=== PATIENT | female | born 1980 | race Caucasian/White ===

== ENCOUNTER 2017-05-21 11:03 | Day surgery (SDC) | payer OTHER ==
[~2017-05-21] VITALS: Ht 157.5 cm; Wt 58.1 kg
--- NOTE | 2017-05-21 12:22 | Operative Note ---
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 She has had some moderate bloating and early satiety. She reports less belching or gassiness. She does have rare nausea. The patient reports no heartburn or reflux. She was having loose bowel movements with bright red rectal bleeding. She was having obstipation/incomplete evacuation. She was treated for SIBO with Xifaxan and then began combined MiraLAX plus Metamucil fiber bowel regimen. This has improved. She reports no dysphagia or globus sensation. She reports no weight loss or melena. She reports no family history of colon cancer. Her mother had colitis. She does not know her paternal family history. Panendoscopy is performed for diagnostic evaluation. Performing Provider: Silver Stout MD Referring Provider: None Sedation: MAC sedation Procedure: Prior to the procedure, a history and physical exam was performed, and patients medications and allergies were reviewed. The risks and benefits of the procedure and the sedation options and risks were discussed with the patient. All questions were answered and informed consent was obtained. The patient was brought to the procedure room. Patient identification and proposed procedure were verified by the physician and the nurse. The patient was placed in a left lateral decubitus position and the scope was passed under direct vision. Throughout the procedure, the patient's blood pressure, pulse, and oxygen saturations were monitored continuously. The endoscope was introduced through the mouth, and advanced to the second part of duodenum. The upper GI endoscopy was accomplished without difficulty. The patient tolerated the procedure well. Findings: The scope was passed directly into the upper esophagus and advanced to the third portion of the duodenum. The post bulbar duodenum and duodenal bulb were normal with normal mucosa and conniventes. Cold biopsies were taken from the post bulbar duodenum to rule out celiac disease. The scope was withdrawn through a normal duodenal bulb and pylorus into the stomach. There was moderate bile reflux with some mild linear reactive antritis/mild gastritis of the antrum. There was mild pylorospasm. The remainder of the antrum, body and fundus of the stomach were grossly normal. Upon retroflexion there was no hiatal hernia. 2 biopsies were taken in the antrum and along the lesser curvature for histology. The scope was then withdrawn into the esophagus. There were tertiary contractions and evidence of mild esophageal dysmotility. The remainder of the esophageal mucosa was normal. Immediate complications: None EBL (ml): 0 Impression: 1. Mild esophageal dysmotility with nonerosive gastroesophageal reflux disease ( mild esophageal dyskinesia) 2. Bile reflux with mild linear reactive gastritis and pylorospasm Recommendations: I do feel that the patient has functional dyspepsia and functional bowel disease. We will discuss additional dietary measures and treatment options. I will follow-up the biopsies. I'll will proceed with diagnostic colonoscopy. at 1225
--- NOTE | 2017-05-21 12:35 | Operative Note ---
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 She has had some moderate bloating and early satiety. She reports less belching or gassiness. She does have rare nausea. The patient reports no heartburn or reflux. She was having loose bowel movements with bright red rectal bleeding. She was having obstipation/incomplete evacuation. She was treated for SIBO with Xifaxan and then began combined MiraLAX plus Metamucil fiber bowel regimen. This has improved. She reports no dysphagia or globus sensation. She reports no weight loss or melena. She reports no family history of colon cancer. Her mother had colitis. She does not know her paternal family history. Panendoscopy is performed for diagnostic evaluation. Performing Provider: Silver Stout MD Referrring Provider: None Sedation: MAC sedation Procedure: Prior to the procedure, a history and physical exam was performed, and patient medications and allergies were reviewed. The risks and benefits of the procedure and the sedation options and risks were discussed with the patient. All questions were answered and informed consent was obtained. Patient identification and proposed procedure were verified by the physician and the nurse. The patient was placed in a left lateral decubitus position. Throughout the procedure, the patient's blood pressure, pulse, and oxygen saturations were monitored continuously. Findings: On digital rectal examination there was normal rectal tone. There were no external hemorrhoids. The colonoscope was introduced through the anal canal to the rectum and advanced to the cecum. The ileocecal valve and appendiceal orifice were identified. The scope was advanced a short distance into the ileum which appeared grossly normal. The scope was then withdrawn into the colon. The cecum, ascending, transverse and descending colon were grossly normal. There was mucosal edema and erythema with very mild granularity in the sigmoid colon. Some of this was submucosal. Multiple biopsies were obtained to rule out self-limited acute colitis. There were no mucosal abnormalities identified. Upon retroflexion within the rectum there were grade 1 internal hemorrhoids. Impressions: 1. Probable acute self-limited sigmoid (regional) colitis versus prep colopathy 2. Grade 1 internal hemorrhoids Recommendations: I will follow up the biopsies. The patient has clinically improved with Xifaxan, fiber bowel regimen (MiraLAX plus Metamucil) and dietary measures. We will discuss additional treatment options. Complications: None EBL (ml): 0 at 1086
[2017-05-21 14:05] VITALS: BP 101/62
== END 2017-05-21 13:55 | disposition home or self-care (01) ==
LOC: SDC 11:03
PROVIDERS: Internal Medicine Gastroenterology
PROC: 0DB68ZX Excision of Stomach, Via Natural or Artificial Opening Endoscopic, Diagnostic (ICD-10-PCS; 2017-05-21)
PROC: 0DBN8ZX Excision of Sigmoid Colon, Via Natural or Artificial Opening Endoscopic, Diagnostic (ICD-10-PCS; 2017-05-21)
PROC: 0DB98ZX Excision of Duodenum, Via Natural or Artificial Opening Endoscopic, Diagnostic (ICD-10-PCS; principal; 2017-05-21 12:00)
DX: K22.4 Dyskinesia of esophagus (principal); K21.9 Gastro-esophageal reflux disease without esophagitis; K29.60 Other gastritis without bleeding; K31.3 Pylorospasm, not elsewhere classified; K64.0 First degree hemorrhoids